=== PATIENT | female | born 1960 | race Two or more races ===

== ENCOUNTER → 2016-08-24 | Outpatient (CLI) | payer MEDICAID ==
[~2016-08-24] MED LIST: BAYER CHEWABLE81 MG PO; LIPITOR PO; NAPROSYN500 MG PO
--- NOTE | ~2016-08-24 | MY11 ---
[facility] A Service of [facility] RADIOLOGY TEXT RESULTS PATIENT: HARRIS CHERRY LOCATION: [facility] : 62 UNIT #: [id number] AGE: [address]: Americo Meng MD SEX: F ORDER DR: [id number] [facility]. [place], [place] [address] [id number] O MR#: [id number] Acc #: [id number] NAME: HARRIS CHERRY : 1960 SEX: F STUDY DATE/TIME: 08/24/2016 11:10 UNIT: [facility] ROOM: STUDY DESCRIPTION: MY Mammogram Screening [facility] [place] Attending Physician: Americo Meng M.D. Referring Physician: Americo Meng M.D. Ordering Physician: Americo Meng M.D. Primary Care Physician: Americo Meng M.D. MEDICAL IMAGING REPORT This report is preliminary unless electronic signature is present EXAM Digital screening mammogram, 08/24/2016 HISTORY 55-year-old woman baseline mammogram. No risk elevation. FINDINGS Digital imaging of each breast was completed utilizing a two-view examination of each breast in craniocaudal and mediolateral-oblique projections. Review and interpretation of digital mammograms include a second review in conjunction with FDA-approved CAD device. There is a normal parenchymal presentation bilaterally consistent with the patient's age. There are no breast masses imaged and no parenchymal asymmetry is visualized. There are no suspicious microcalcifications and I see no focal architectural disturbance. IMPRESSION Negative screening digital mammogram. One-year followup recommended. Patients over the age of 40 are entered into a reminder system with target due date for the next mammogram. A result letter will also be sent to the patient. BIRADS: 1 Negative ADDENDUM Breast parenchyma is fatty replaced. Occasional intramammary lymph nodes noted in each breast. Dictated by... Isacc Boss M.D. THIS IS AN ELECTRONICALLY VERIFIED REPORT [facility] A Service of [facility] RADIOLOGY TEXT RESULTS PATIENT: HARRIS CHERRY LOCATION: [facility] : 62 UNIT #: [id number] AGE: [address]: Americo Meng MD SEX: F ORDER DR: Isacc Boss M.D. at 08/25/2016 8:08 AM Kayla TD: 08/24/2016 15:40 JOB #: [id number] MEDICAL IMAGING REPORT Page 1 of 1 COPY
== END | disposition home or self-care (01) ==
LOC: CWCC 10:36
DX: Z12.31 Encounter for screening mammogram for malignant neoplasm of breast (principal); R92.8 Other abnormal and inconclusive findings on diagnostic imaging of breast
CPT/HCPCS: G0202